=== PATIENT | male | born 1960 | race Caucasian/White ===

== ENCOUNTER 2016-08-16 21:04 | Emergency (ER) | payer OTHER ==
[~2016-08-16] VITALS: Ht 193 cm; Wt 135.6 kg
[2016-08-16 21:06] VITALS: BP 154/94
== END 2016-08-16 22:08 | disposition home or self-care (01) ==
LOC: EME 21:04 → EXP 21:04
DX: S80.01XA Contusion of right knee, initial encounter (principal); S80.02XA Contusion of left knee, initial encounter; S20.00XA Contusion of breast, unspecified breast, initial encounter; F07.81 Postconcussional syndrome; V49.40XA Driver injured in collision with unspecified motor vehicles in traffic accident, initial encounter
CPT/HCPCS: 99281; 99283